=== PATIENT | male | born 1995 | race Caucasian/White ===

== ENCOUNTER 2018-12-27 12:09 | Outpatient (CLI) | payer OTHER, MEDICAID ==
--- NOTE | 2018-12-28 11:17 | MRI Report ---
Reason: PATELLOFEMORAL DISORDER OF RIGHT KNEE Procedure Date: 12/27/2018 Accession Number: [id number] / [id number] Procedure: MRI - Knee RT W/O CPT Code: FULL RESULT: EXAM: RIGHT KNEE MRI WITHOUT CONTRAST EXAM DATE: 12/27/2018 01:15 PM. CLINICAL HISTORY: Right knee pain following a fall. COMPARISON: 10/21/2015 right knee MRI. TECHNIQUE: Multiplanar, multisequence T1-weighted and fluid-sensitive sequences of the knee without contrast. Other: None. FINDINGS: Bones: No fractures or subluxations. No marrow edema. No bone lesions. Articular Cartilage: Unremarkable. Medial Meniscus: The medial meniscus is intact. Lateral Meniscus: Borderline diskoid morphology of the lateral meniscus, with a radial tear involving the inner third of the body of the lateral meniscus that has increased in size when compared to the prior examination. 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 Cruciate Ligaments: The anterior and posterior cruciate ligaments are intact. Collateral Ligaments: The medial collateral and lateral collateral ligamentous structures are intact. Tendons: The quadriceps, patellar, semimembranosus, and popliteus tendons are unremarkable. Musculature: No edema or fatty atrophy. Other: No effusion. No popliteal cyst. No loose bodies. The medial and lateral retinacula are intact. The subcutaneous tissues and fat pads are unremarkable. IMPRESSION: Borderline diskoid morphology of the lateral meniscus, with a radial tear involving the inner third of the body of the lateral meniscus that has increased in size when compared to the prior examination. 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 RADIA
== END 2018-12-27 12:10 | disposition home or self-care (01) ==
LOC: DI 12:09
PROVIDERS: ATTEND Orthopaedic Surgery Sports Medicine
DX: S83.281A Other tear of lateral meniscus, current injury, right knee, initial encounter (principal)

== ENCOUNTER 2020-04-07 07:00 | Outpatient (CLI) | payer OTHER, MEDICAID ==
--- NOTE | 2020-04-07 17:01 | XRAY Report ---
PROCEDURE: Lumbar Spine 2 View INDICATIONS: LUMBAR RADICULOPATHY TECHNIQUE: 2 views of the lumbar spine were acquired. COMPARISON: None. FINDINGS: Bones: 5 [id number] vertebrae are present. There is normal bony alignment. No vertebral body compression fractures. No suspicious bony lesions. Soft tissues: Overlying bowel gas pattern is normal. No suspicious soft tissue calcifications. IMPRESSION: Lumbar spine without acute osseous abnormalities or malalignment. Minimal straightening of normal lumbar lordosis likely related to positioning and/or concurrent muscle spasms. Reviewed by: Efren Yates MD on 04/07/2020 5:00 PM PST Approved by: Efren Yates MD on 04/07/2020 5:00 PM PST Station ID: [id number]
== END 2020-04-07 23:59 | disposition home or self-care (01) ==
LOC: DI.S 07:00
PROVIDERS: ATTEND Physician Assistant
DX: M54.16 Radiculopathy, lumbar region (principal)